=== PATIENT | male | born 1945 | race Caucasian/White ===

== ENCOUNTER → 2016-10-08 | Outpatient (CLI) | payer MEDICARE ==
[~2016-10-08] MED LIST: AMLO5TAB2 PO; ASPI-496 PO; ATOR40TA PO; LOSA50TA6 PO; METO25TA91 PO; NITR0.4T SL
[2016-10-08 13:05] LABS: BLOOD UREA NITROGEN 20 mg/dL (7-18)
[2016-10-08 13:09] LABS: ASPARTATE AMINO TRANSFERASE 26 U/L (15-37)
== END | disposition home or self-care (01) ==
LOC: CFH 11:07
PROVIDERS: ATTEND Internal Medicine Cardiovascular Disease
DX: R94.31 Abnormal electrocardiogram [ECG] [EKG] (principal); I20.0 Unstable angina; I10 Essential (primary) hypertension; E78.2 Mixed hyperlipidemia
CPT/HCPCS: 36415; 71020; 80053; 80061; 85025; 85610; 85730

== ENCOUNTER 2016-10-09 09:57 | Observation (INO) | payer MEDICARE ==
[~2016-10-09] VITALS: Ht 177.8 cm; Wt 77.3 kg
[2016-10-09] MEDS ORDERED: SODIUM CHLORIDE 0.9% 1,000 ML IV SCH (10:33)
[2016-10-09 10:36] VITALS: BP 190/85
[2016-10-09] MEDS ORDERED: ATOR40TA PO (10:53)
[2016-10-09] MEDS ORDERED: AMLO5TAB2 PO (10:53)
[2016-10-09] MEDS ORDERED: NITR0.4T SL (10:53)
[2016-10-09] MEDS ORDERED: METO25TA91 PO (10:53)
[2016-10-09] MEDS ORDERED: ASPI-496 PO (10:53)
[2016-10-09] MEDS ORDERED: LOSA50TA6 PO (10:53)
[2016-10-09] MEDS ORDERED: MIDAZOLAM 1 MG/ML, 5ML ONE ×2 (10:55→11:34)
[2016-10-09] MEDS ORDERED: LIDOCAINE 2%, 20ML ONE ×2 (10:55→11:34)
[2016-10-09] MEDS ORDERED: FENTANYL PF 100 MCG/2ML ONE ×2 (10:55→11:34)
[2016-10-09] MEDS ORDERED: BIVALIRUDIN 250 MG ONE ×2 (12:43→13:22)
[2016-10-09] MEDS ORDERED: TICAGRELOR 90 MG TABLET ONE (12:43)
[2016-10-09] MEDS ORDERED: NITROGLYCERIN 5 MG/ML, 10ML ONE (12:43)
[2016-10-09] MEDS ORDERED: BIVALIRUDIN 250 MG in DEXTROSE 5% 50 ML IV SCH (13:27)
[2016-10-09] MEDS ORDERED: ACETAMINOPHEN 325 MG TABLET PO PRN (13:30)
[2016-10-09] MEDS ORDERED: ZOLPIDEM 5MG TABLET PO PRN ×2 (13:30→14:30)
[2016-10-09] MEDS ORDERED: NITROGLYCERIN 0.4 MG BOTTLE (25 TABS) SL PRN (14:30)
[2016-10-09] MEDS: SODIUM CHLORIDE 0.9% 1,000 ML IV SCH ×2 (14:43→18:04)
[2016-10-09 17:38] VITALS: BP 127/62
[2016-10-09 19:06] VITALS: BP 181/67
[2016-10-09] MEDS: LOSARTAN 50MG TABLET PO SCH (20:00)
[2016-10-09] MEDS: METOPROLOL SUCCINATE 25 MG TAB.ER.24H PO SCH (20:00)
[2016-10-09] MEDS: TICAGRELOR 90 MG TABLET PO SCH (20:01)
[2016-10-09] MEDS ORDERED: ATORVASTATIN 40 MG TABLET PO SCH (21:00)
[2016-10-10 01:22] VITALS: BP 161/73
[2016-10-10] MEDS: SODIUM CHLORIDE 0.9% 1,000 ML IV SCH (04:12)
[2016-10-10 05:34] LABS: BLOOD UREA NITROGEN 14 mg/dL (7-18)
[2016-10-10] MEDS ORDERED: ASPIRIN 81 MG TABLET EC PO SCH (06:00)
[2016-10-10] MEDS ORDERED: METOPROLOL SUCCINATE 25 MG TAB.ER.24H PO SCH (06:00)
[2016-10-10 07:44] VITALS: BP 164/75
[2016-10-10] MEDS ORDERED: TICA90TA PO (08:16)
[2016-10-10] MEDS: METOPROLOL SUCCINATE 25 MG TAB.ER.24H PO SCH (08:45)
[2016-10-10] MEDS: LOSARTAN 50MG TABLET PO SCH (08:45)
[2016-10-10] MEDS: TICAGRELOR 90 MG TABLET PO SCH (08:45)
[2016-10-10] MEDS ORDERED: LOSARTAN 50MG TABLET PO SCH (09:00)
[2016-10-10] MEDS ORDERED: AMLODIPINE 5 MG TABLET PO SCH (09:00)
== END 2016-10-10 10:45 | disposition home or self-care (01) ==
LOC: CACL 09:57 → 5SO 13:27 → CACL 14:18 → DCLOUNGE 10-10 10:28
PROVIDERS: ADMIT Internal Medicine Cardiovascular Disease; ATTEND Internal Medicine Cardiovascular Disease
DX: I25.110 Atherosclerotic heart disease of native coronary artery with unstable angina pectoris (principal); E78.5 Hyperlipidemia, unspecified; I10 Essential (primary) hypertension; I34.0 Nonrheumatic mitral (valve) insufficiency
CPT/HCPCS: 36415; 80048; 82040; 93005; 93306; 93458; 99156; 99157; C1725; C1760; C1769; C1874; C1887; C1894; C9600; G0378; J0583; J2250; J3010; J3490; J7030; Q9967; 99152; 99153

== ENCOUNTER → 2016-10-31 | Outpatient (CLI) | payer MEDICARE ==
[~2016-10-31] MED LIST changes: +REGADENOSON 0.4 MG/5 ML SYRINGE ONE; +TICA90TA PO
== END | disposition home or self-care (01) ==
LOC: RAD 10:34
PROVIDERS: ATTEND Nurse Practitioner Family
DX: I25.10 Atherosclerotic heart disease of native coronary artery without angina pectoris (principal); I10 Essential (primary) hypertension
CPT/HCPCS: 78452; 93017; A9502; J2785

== ENCOUNTER 2018-07-06 07:22 | Outpatient (CLI) | payer MEDICARE ==
[~2018-07-06 07:22] MED LIST changes: +AMLO-150 PO; -AMLO5TAB2 PO; +LOSA50TA14 PO; -LOSA50TA6 PO; -REGADENOSON 0.4 MG/5 ML SYRINGE ONE
== END 2018-07-06 23:59 | disposition home or self-care (01) ==
LOC: CFH 07:22
PROVIDERS: ATTEND Internal Medicine Cardiovascular Disease
DX: I08.3 Combined rheumatic disorders of mitral, aortic and tricuspid valves (principal); I11.9 Hypertensive heart disease without heart failure; E78.5 Hyperlipidemia, unspecified; I25.10 Atherosclerotic heart disease of native coronary artery without angina pectoris
CPT/HCPCS: 78452; 93017; 93306; A9502

== ENCOUNTER → 2019-06-07 | Outpatient (CLI) | payer MEDICARE ==
[~2019-06-07] MED LIST changes: -NITR0.4T SL; +NITR0.4T41 SL
== END | disposition home or self-care (01) ==
LOC: CVU 07:28
PROVIDERS: ATTEND Family Medicine
DX: I70.211 Atherosclerosis of native arteries of extremities with intermittent claudication, right leg (principal); I70.292 Other atherosclerosis of native arteries of extremities, left leg; E78.2 Mixed hyperlipidemia
CPT/HCPCS: 93922; 93925

== ENCOUNTER → 2019-11-15 | Outpatient (CLI) | payer MEDICARE | END | disposition home or self-care (01) | LOC: CFH 15:30 | PROVIDERS: ATTEND Internal Medicine Cardiovascular Disease | DX: I08.8 Other rheumatic multiple valve diseases (principal); I10 Essential (primary) hypertension; E78.5 Hyperlipidemia, unspecified; Z87.891 Personal history of nicotine dependence | CPT/HCPCS: 93306 ==

== ENCOUNTER → 2020-11-02 | Outpatient (CLI) | payer MEDICARE | END | disposition home or self-care (01) | LOC: CFH 12:28 | PROVIDERS: ATTEND Internal Medicine Cardiovascular Disease | DX: I25.89 Other forms of chronic ischemic heart disease (principal); I25.10 Atherosclerotic heart disease of native coronary artery without angina pectoris; I34.0 Nonrheumatic mitral (valve) insufficiency; R94.31 Abnormal electrocardiogram [ECG] [EKG] | CPT/HCPCS: 78452; 93017; A9502 ==